=== PATIENT | male | born 1980 | race African-American/Black ===

== ENCOUNTER 2020-01-14 13:03 | Emergency (ER) | payer BC, SELFPAY ==
--- NOTE | ~2020-01-14 | XR_ITS ---
EXAMINATION: XR chest 1V portable 01/14/2020 13:39 INDICATION: Left chest pain PROCEDURE: AP portable chest COMPARISON: No prior studies for comparison. FINDINGS: The lungs are clear. The cardiomediastinal silhouette is within normal limits. There are no pleural effusions. There is no pneumothorax suspected. IMPRESSION: 1: NO ACUTE CARDIOPULMONARY DISEASE. Reviewed, dictated and finalized at location A.
[2020-01-14 13:07] VITALS: BP 137/78; PULSE 81; RESP 18; TEMP 36.4; O2SAT 100
[2020-01-14 13:10] VITALS: PULSE 81
--- NOTE | 2020-01-14 13:10 | ECG_ITS ---
Measurements Intervals [place] Rate: 76 P: 43 AL: 187 QRS: 27 QRSD: 93 T: -11 QT: 361 QTc: 407 Interpretive Statements SINUS RHYTHM NONSPECIFIC ST & T-WAVE ABNORMALITY- INFERIOR LEADS BASELINE ARTIFACT- II, III, AVF BORDERLINE ECG Electronically Signed On 01-14-2020 13:25:57 CDT by Brendan Baird D.O.
[2020-01-14] MEDS: ASPIRIN 81 MG CHEWABLE TABLET 324 MG PO (13:14)
[2020-01-14 13:25] LABS: Basophils Absolute Auto 0.1 K/mm3 (0.0-0.1); Basophils Percent Auto 0.6 % (0.2-1.2); Eosinophils Absolute Auto 0.1 K/mm3 (0-0.3); Eosinophils Percent Auto 1.6 % (0-4.4); Hematocrit 45.8 % (42.0-52.0); Hemoglobin 14.7 g/dL (14.0-18.0); Immature Granulocyte Absolute 0.03 K/mm3 (0.00-0.031); Immature Granulocyte Percent A 0.3 % (0-0.5); Lymphocytes Percent Auto 25.8 % (18.3-44.2); Mean Corpuscular HGB Conc 32.1 g/dl (32-36); Mean Corpuscular Hemoglobin 28.3 pg (26-34); Mean Corpuscular Volume 88.1 fl (80-100); Mean Platelet Volume 9.6 fl (7.4-10.4); Monocytes Absolute Auto 0.8 K/mm3 (0.1-0.6); Monocytes Percent Auto 8.4 % (2.6-8.5); Neutrophils Absolute Auto 5.6 K/mm3 (1.3-6.7); Neutrophils Percent Auto 63.3 % (45.5-73.1); Platelet Count Result 322 k/mm3 (150-375); Red Cell Distribution Width 11.5 % (11.5-14.5); White Blood Count 8.9 K/mm3 (4.5-10.0)
[2020-01-14 13:34] LABS: Prothrombin Time 12.7 Seconds (11.1-14.7)
[2020-01-14 13:37] VITALS: O2SAT 99
[2020-01-14 13:38] LABS: D Dimer 0.27 ug/mL (<0.48)
[2020-01-14 13:46] LABS: Troponin I < 0.012 ng/mL (0.000-0.034)
[2020-01-14 13:47] LABS: Alanine Aminotransferase 28 U/L (4-50); Albumin Level 4.6 g/dL (3.5-5.1); Alkaline Phosphatase 92 U/L (38-126); Aspartate Amino Transferase 23 U/L (17-59); Bilirubin,Total 1.3 mg/dL (0.2-1.3); Blood Urea Nitrogen 11 mg/dL (9-20); Calcium 9.6 mg/dL (8.4-10.2); Carbon Dioxide 26 mmol/L (22-30); Chloride 104 mmol/L (98-107); Estimated CRCL calculation 119 ml/min; Estimated Glomerular Filt Rate > 60; Glucose 97 mg/dL (75-110); Lipase 56 U/L (23-300); Potassium 3.9 mmol/L (3.4-5.0); Sodium 137 mmol/L (137-145)
--- NOTE | 2020-01-14 13:54 | ED.GENADULT ---
HPI - General Adult General Chief complaint: Chest Pain Stated complaint: chest pain Time Seen by Provider: 01/14/20 13:04 Source: patient Mode of arrival: ambulatory Limitations: no limitations History of Present Illness HPI narrative: Patient is a 39-year-old male who presents to emergency department for evaluation of left-sided intermittent chest pain described as a cramping sensation that lasts seconds and occurs throughout the day for the last 3 days. Patient does not take anything other than a few aspirin for his discomfort. Patient denies radiation of pain URI symptoms fever chills dyspnea or other complaints. Patient presents per private vehicle in no distress. Patient does not currently have a primary care doctor. Patient notes that he may have had fluid around his heart in the past but never has continued to follow-up and that the symptoms resolved. Related Data Home Medications Medication Instructions Recorded Confirmed No Home Medications 01/14/20 01/14/20 Allergies Allergy/AdvReac Type Severity Reaction Status Date / Time No Known Allergies Allergy Verified 01/14/20 13:13 Review of Systems Review of Systems: All systems reviewed & are unremarkable except as noted in HPI and below PMFSH Social History Social History (Updated 01/14/20 @ 13:55 by Casey Barrett PA-C) Smoking status: Former smoker Gender identity (if verbalized by the patient): Male Exam Narrative: Exam Narrative: GENERAL: Well-appearing, well-nourished, and in no acute distress. HEAD: Normocephalic, atraumatic. EYES: PERRLA and EOMI. ENT: Nares clear, no rhinorrhea or epistaxis. Mucous membranes moist. CHEST: Clear to auscultation. No respiratory distress. No wheezes rales or rhonchi HEART: Regular rate and rhythm. No murmur heard. Normal peripheral pulses. ABDOMEN: Soft, nontender, nondistended EXTREMITIES: Normal range of motion. No edema. SKIN: Warm, dry, no rash. NEURO: No focal deficits. Alert and oriented x3. Cranial nerves II through XII grossly intact PSYCH: Normal mood and affect. Course Course Emergency Course: Patient in the room at this time in no distress aware of case findings treatment plan and diagnosis agreeing to follow-up as directed with provided cardiology consult provided with reasons to return felt appropriate for outpatient reevaluation Consultations Consultation #1: Discussed case with cardiology who will follow patient in clinic Date: 01/14/20 Time: 17:13 Vital Signs Vital signs: Vital Signs Temperature 97.6 F 01/14/20 13:07 Pulse Rate 81 01/14/20 13:07 Respiratory Rate 18 01/14/20 13:07 Blood Pressure 137/78 01/14/20 13:07 Pulse Oximetry 100 01/14/20 13:07 Temperature 97.6 F 01/14/20 17:05 Pulse Rate 80 01/14/20 17:05 Respiratory Rate 22 H 01/14/20 17:05 Blood Pressure 113/72 01/14/20 17:05 Pulse Oximetry 100 01/14/20 17:05 Medical Decision Making MDM Narrative Medical decision making narrative: Patients EKGs and labs are without significant high risk changes. Cardiac risk factors were reviewed. Patient is felt likely to be low risk for ACS and reasonable for further risk stratification testing as an outpatient. Pain was not sudden or maximal in onset without tearing or ripping. quality. No other signs or symptoms to suggest aortic dissection. A low-risk Wells criteria is noted. PE is felt to be unlikely. No pneumonia or URI symptoms were seen on evaluation today. Patient is felt to b reasonable for continued evaluation as an outpatient. Vital Signs Vital Signs: Vital Signs Temperature 97.6 F 01/14/20 13:07 Pulse Rate 81 01/14/20 13:07 Respiratory Rate 18 01/14/20 13:07 Blood Pressure 137/78 01/14/20 13:07 Pulse Oximetry 100 01/14/20 13:07 Temperature 97.6 F 01/14/20 17:05 Pulse Rate 80 01/14/20 17:05 Respiratory Rate 22 H 01/14/20 17:05 Blood Pressure 113/72 01/14/20 17:05 Pulse Oximetry 100 01/14/20 17:05
[2020-01-14 13:55] LABS: NT Pro B Type Natriuretic Pept 28 PG/ML (5-100)
[2020-01-14 14:30] VITALS: BP 123/71; PULSE 66; RESP 14; TEMP 36.4; O2SAT 99
[2020-01-14 14:36] LABS: Amphetamine Screen Urine Negative (Negative); Barbiturate Screen Urine Negative (Negative); Benzodiazepines Screen Urine Negative (Negative); Cannabinoid Screen Urine Negative (Negative); Cocaine Screen Urine Negative (Negative); Methadone Screen Urine Negative (Negative); Opiate Screen Urine Negative (Negative); Phencyclidine Screen Urine Negative (Negative)
[2020-01-14 17:00] LABS: Troponin I < 0.012 ng/mL (0.000-0.034)
[2020-01-14 17:05] VITALS: BP 113/72; PULSE 80; RESP 22; TEMP 36.4; O2SAT 100
== END 2020-01-14 17:26 | disposition home or self-care (01) ==
PROVIDERS: Emergency Medicine Emergency Medical Services; Emergency Provider Emergency Medicine
DX: R07.9 Chest pain, unspecified (principal); Z87.891 Personal history of nicotine dependence; R94.31 Abnormal electrocardiogram [ECG] [EKG]
CPT/HCPCS: 36415; 71045; 80053; 80307; 83690; 83880; 84484; 85025; 85380; 85610; 85730; 93005; 99284; A9270

== ENCOUNTER 2021-02-01 00:42 | Emergency (ER) | payer BC, SELFPAY ==
[2021-02-01] VITALS (13 sets, daily range): BP systolic 133–163; BP diastolic 83–107; PULSE 84–100; RESP 17–24; TEMP 36.6; O2SAT 98–100
--- NOTE | ~2021-02-01 | XR_ITS ---
EXAMINATION: XR chest 2V DATE: 02/01/2021 01:09 INDICATION: Tachycardia TECHNIQUE: PA and lateral views of the chest are obtained. COMPARISON: 01/14/2020 FINDINGS: The lungs are free of acute opacities. There is no pleural effusion or pneumothorax. The ca rdiomediastinal silhouette is normal. The visualized bones and soft tissues are unremarkable. Calcifi ed loose bodies are noted in the left shoulder. IMPRESSION: 1. No acute cardiopulmonary abnormality. Reviewed, dictated and finalized at location A.
--- NOTE | 2021-02-01 00:47 | ECG_ITS ---
Measurements Intervals [place] Rate: 88 P: 54 NV: 187 QRS: 9 QRSD: 73 T: -33 QT: 339 QTc: 412 Interpretive Statements SINUS RHYTHM BORDERLINE ST-T WAVE ABNORMALITY- INF/LAT LEADS BASELINE ARTIFACT- II, III, AVR, AVF, V1, V3-V6 BORDERLINE ECG Electronically Signed On 02-01-2021 6:06:23 CDT by Brendan Baird D.O.
[2021-02-01 00:59] LABS: Basophils Absolute Auto 0.1 K/mm3 (0.0-0.1); Basophils Percent Auto 0.7 % (0.2-1.2); Eosinophils Absolute Auto 0.3 K/mm3 (0-0.3); Eosinophils Percent Auto 2.8 % (0-4.4); Hematocrit 46.4 % (42.0-52.0); Hemoglobin 14.7 g/dL (14.0-18.0); Immature Granulocyte Absolute 0.03 K/mm3 (0.00-0.031); Immature Granulocyte Percent A 0.3 % (0-0.5); Lymphocytes Absolute Auto 3.06 K/mm3 (0.9-3.2); Lymphocytes Percent Auto 28.8 % (18.3-44.2); Mean Corpuscular HGB Conc 31.7 g/dl (32-36); Mean Corpuscular Hemoglobin 28.3 pg (26-34); Mean Corpuscular Volume 89.2 fl (80-100); Mean Platelet Volume 9.3 fl (7.4-10.4); Monocytes Percent Auto 9.4 % (2.6-8.5); Neutrophils Absolute Auto 6.2 K/mm3 (1.3-6.7); Platelet Count Result 334 k/mm3 (150-375); Red Cell Distribution Width 11.7 % (11.5-14.5); White Blood Count 10.6 K/mm3 (4.5-10.0)
[2021-02-01 01:09] LABS: INR 0.9; Partial Thromboplastin Time 29.6 SECONDS (22.3-36.8); Prothrombin Time 12.7 Seconds (11.1-14.7)
--- NOTE | 2021-02-01 01:13 | ED.ARRPALP ---
HPI - Arrhythmia/Palpitations General Chief Complaint: Arrhythmia/Palpitations Stated Complaint: rapid heartbeat for last 30 minutes Time Seen by Provider: 02/01/21 00:50 History of Present Illness HPI narrative: Heart racing for the past 30 minutes. Fells like it is beating harder than usual. No chest pain. Was light headed with standing. Related Data Home Medications Medication Instructions Recorded Confirmed No Home Medications 01/14/20 01/14/20 Allergies Allergy/AdvReac Type Severity Reaction Status Date / Time No Known Allergies Allergy Verified 02/01/21 00:57 Review of Systems Review of Systems: All systems reviewed & are unremarkable except as noted in HPI and below Constitutional: Constitutional: Denies fever(s) and Denies weakness Eyes: Eyes: Reports no additional eye complaints Cardiovascular: Cardiovascular: Denies chest pain Respiratory: Respiratory: Denies dyspnea Gastrointestinal: Gastrointestinal: Denies nausea Neurologic: Denies confusion and Denies weakness [facility] Social History Social History Smoking status: Former smoker Gender identity (if verbalized by the patient): Male Exam Const: General: healthy appearing, no acute distress and alert Orientation/consciousness: patient oriented x3 HENMT: Head: normal to inspection Neck: Neck: normal visual inspection and no lymphadenopathy Chest: Chest palpation & inspection: no tenderness Resp: Effort & Inspection: normal respiratory effort Auscultation: clear to auscultation bilaterally, no rales, no rhonchi and no wheezes Cardio: Jugular venous distension: no JVD Rate: regular rate Rhythm: regular rhythm Heart sounds: no murmurs GI: Inspection: non-distended GI Palp: Yes Soft to palpation and No Tenderness to palpation present (GI) Skin: General skin exam: normal color Neuro: General: patient oriented x3 and moves all extremities Speech: normal speech Extrem: General: no edema Psych: Appearance: well kempt Affect: normal affect Course Vital Signs Vital signs: Vital Signs Temperature 36.6 C 02/01/21 00:46 Pulse Rate 97 02/01/21 00:46 Respiratory Rate 19 02/01/21 00:46 Blood Pressure 163/90 H 02/01/21 00:46 Pulse Oximetry 98 02/01/21 00:46 Temperature 36.6 C 02/01/21 00:46 Pulse Rate 84 02/01/21 02:38 Respiratory Rate 19 02/01/21 02:38 Blood Pressure 149/83 H 02/01/21 02:38 Pulse Oximetry 100 02/01/21 02:38 MDM - Arrhythmia/Palpitations MDM Narrative Medical decision making narrative: Normal rate and rhthym on telemetry and EKG. Sounds like he is likely dehydrated. No other worrisome symptoms. Differential Diagnosis Differential diagnosis: Likely palpitations, anxiety, sinus tachycardia and other Medical Records Attestation: I reviewed the patient's medical records. Lab Data Attestation: I reviewed the patient's lab results. Result diagrams: 02/01/21 00:53 02/01/21 00:53 Labs: Lab Results 02/01/21 02/01/21 02/01/21 Range/Units 00:53 00:53 00:53 WBC 10.6 H (4.5-10.0) K/mm3 RBC 5.20 (4.6-6.20) M/mm3 Hgb 14.7 (14.0-18.0) g/dL Hct 46.4 (42.0-52.0) % MCV 89.2 (80-100) fl MCH 28.3 (26-34) pg MCHC 31.7 L (32-36) g/dl RDW 11.7 (11.5-14.5) % Plt Count 334 (150-375) k/mm3 MPV 9.3 (7.4-10.4) fl Immature Gran % (Auto) 0.3 (0-0.5) % Neut % (Auto) 58.0 (45.5-73.1) % Lymph % (Auto) 28.8 (18.3-44.2) % Lynn % (Auto) 9.4 H (2.6-8.5) % Eos % (Auto) 2.8 (0-4.4) % Baso % (Auto) 0.7 (0.2-1.2) % Lymph # (Auto) 3.06 (0.9-3.2) K/mm3 Lynn # (Auto) 1.0 H (0.1-0.6) K/mm3 Eos # (Auto) 0.3 (0-0.3) K/mm3 Baso # (Auto) 0.1 (0.0-0.1) K/mm3 Abs Immat Gran (auto) 0.03 (0.00-0.031) K/mm3 Absolute Neuts (auto) 6.2 (1.3-6.7) K/mm3 Absolute Nucleated RBC 0.0 (0.0-0.012) K/mm3 Nucleated RBC % 0.0
[2021-02-01 01:28] LABS: Anion Gap 5 mmol/L (8-16); Blood Urea Nitrogen 12 mg/dL (9-20); Calcium 9.5 mg/dL (8.4-10.2); Carbon Dioxide 24 mmol/L (22-30); Chloride 109 mmol/L (98-107); Estimated CRCL calculation 122 ml/min; Estimated Glomerular Filt Rate > 60; Glucose 106 mg/dL (75-110); Potassium 3.9 mmol/L (3.4-5.0); Sodium 138 mmol/L (137-145)
[2021-02-01] MEDS: SODIUM CHLORIDE 0.9% IV 1,000 ML 999 ML IV CONT (01:36)
[2021-02-01 01:40] LABS: Troponin I < 0.012 ng/mL (0.000-0.034)
== END 2021-02-01 02:37 | disposition home or self-care (01) ==
PROVIDERS: Emergency Provider Emergency Medicine; PCP Emergency Medicine
DX: R00.2 Palpitations (principal); Z87.891 Personal history of nicotine dependence; R94.31 Abnormal electrocardiogram [ECG] [EKG]
CPT/HCPCS: 36415; 71046; 80048; 84484; 85025; 85610; 85730; 93005; 96360; 99284; J7030

== ENCOUNTER 2021-06-09 12:12 | Emergency (ER) | payer BC, SELFPAY ==
--- NOTE | ~2021-06-09 | XR_ITS ---
EXAMINATION: XR chest 2V EXAM DATE: 06/09/2021 12:39 INDICATION: Anterior left-sided chest pain, acute onset. History high blood pressure. TECHNIQUE: Frontal and lateral projections of the chest obtained and reviewed. Comparison is made to prior examination from 02/01/2021. FINDINGS: The lungs are clear. There are no pleural effusions. The cardiomediastinal silhouette is within normal limits. There is no pneumothorax suspected. The bones and soft tissues are unremarkab le. IMPRESSION: Unremarkable chest x-ray exam. Reviewed, dictated and finalized at location A.
--- NOTE | ~2021-06-09 | CT_ITS ---
EXAMINATION: CT brain wo con DATE: 06/09/2021 15:05 INDICATION: Headache for 2 days TECHNIQUE: Computed tomography (CT) of the head was performed without intravenous contrast. The mA wa s adjusted according to patient size. Iterative reconstruction technique was employed. Exam dose: 60 5.33 mGy-cm total exam DLP. COMPARISON: None FINDINGS: No intracranial mass lesion or hemorrhage or cerebrovascular accident is detected. No midli ne shift or mass effect. Normal ventricular size. Normal locke-white matter differentiation. No subdur al or epidural hematoma is detected. The orbital contents are unremarkable. No fracture or bone destruction of the cranial vault. There is minimal fluid or soft tissue thickenin g in the posterior right sphenoid sinus. The mastoid air cells are unremarkable. IMPRESSION: No significant intracranial abnormality Minimal fluid or soft tissue thickening in the posterior right sphenoid sinus Reviewed, dictated and finalized at Location A. Reviewed, dictated and finalized at location B.
[2021-06-09 12:21] VITALS: BP 134/91; PULSE 83; RESP 18; TEMP 36.5; O2SAT 100
--- NOTE | 2021-06-09 12:28 | ECG_ITS ---
Measurements Intervals [place] Rate: 79 P: 49 MS: 193 QRS: 18 QRSD: 79 T: -10 QT: 348 QTc: 400 Interpretive Statements SINUS RHYTHM NONSPECIFIC T-WAVE ABNORMALITY- INFERIOR LEADS BORDERLINE ECG Electronically Signed On 06-09-2021 13:43:21 CDT by Brendan Baird D.O.
[2021-06-09 12:30] VITALS: BP 126/82; PULSE 73; RESP 18; O2SAT 100
[2021-06-09 12:31] VITALS: PULSE 79
--- NOTE | 2021-06-09 12:38 | ED.RECABL ---
HPI - Recheck/Abnormal Lab/Rx General Chief Complaint: Recheck/Abnormal Lab/Rx Stated Complaint: high blood pressure/ headache Time Seen by Provider: 06/09/21 12:25 Source: RN notes reviewed History of Present Illness HPI narrative: Patient presents emergency department from home for multiple complaints. The patient states that for the past 2 days has had a generalized headache that is currently resolved and notes no headache at this time. Patient also states that this morning he had 2 episodes of left-sided chest pain there is described as sharp and stabbing each lasted approximately 1 seconds and resolved he has had no pain since that time denies any fevers or chills shortness of breath abdominal pain nausea vomiting or any other symptoms Related Data Home Medications Medication Instructions Recorded Confirmed simvastatin 20 mg DAILY 06/09/21 Allergies Allergy/AdvReac Type Severity Reaction Status Date / Time No Known Allergies Allergy Verified 06/09/21 12:30 Review of Systems Review of Systems: Gen.: Denies fevers or chills ENT: Denies congestion Respiratory: Denies shortness of breath or cough CV: Denies chest pain or palpitations GI: Denies abdominal pain nausea, emesis or diarrhea denies burning, urgency, frequency or hematuria Musculo reports headache Skin: Denies rash Except as documented, all other systems reviewed and negative [facility] Past Medical History Medical History (Updated 06/09/21 @ 16:17 by Carlos Miller DO) Hypercholesterolemia Social History Social History Smoking status: Former smoker Gender identity (if verbalized by the patient): Male Exam Narrative: APPEARANCE: No acute distress, nontoxic, resting in bed EYES: EOMI HEENT: Normocephalic, atraumatic, OMM TMs clear bilaterally Neck supple full range of motion without pain no meningismus RESPIRATORY: No respiratory distress Clear to auscultation bilaterally with no rhonchi wheezing or rales. CARDIOVASCULAR: Regular rate and rhythm without murmurs rubs or gallops. ABDOMINAL: Soft, nontender, nondistended, no rebound or guarding MUSCULOSKELETAl: Moves all extremities. No clubbing, cyanosis or edema. NEURO: Awake and alert x 4. Following commands, speech normal, no focal deficits SKIN:: Warm, dry. No rashes lesions or abrasions PSYCHIATRIC: Normal affect/mood, Course Course Emergency Course: Patient meets PERC rule criteria and no further testing needs to be performed for pulmonary embolism. Patient did have mild return of his headache and was given Toradol with resolution of headache. He states he has had some mild issue with allergies recently Discussed with patient results of workup and diagnosis. Discussed need for follow-up with primary care, proper use of medication, and reasons to return to the emergency department. Patient understands and agrees to current treatment plan Vital Signs Vital signs: Vital Signs Temperature 97.7 F 06/09/21 12:21 Pulse Rate 83 06/09/21 12:21 Respiratory Rate 18 06/09/21 12:21 Blood Pressure 134/91 H 06/09/21 12:21 Pulse Oximetry 100 06/09/21 12:21 Temperature 97.7 F 06/09/21 12:21 Pulse Rate 72 06/09/21 14:00 Respiratory Rate 18 06/09/21 14:00 Blood Pressure 118/68 06/09/21 14:00 Pulse Oximetry 100 06/09/21 14:00 MDM - Recheck/Abnormal Lab/Rx MDM Narrative Medical decision making narrative: Patient's EKGs and labs are without significant high risk changes. Cardiac risk factors reviewed. Patient is felt likely low risk for ACS and reasonable for further risk stratification testing as an outpatient. Pain was not sudden or maximal in onset without tearing or ripping quality. No other signs of symptoms suggest aortic dissection. A low-risk Wells criteria is noted, PE is felt to be unlikely. No pneumonia seen on evaluation today. Patient is felt to be a reasonable candidate for continued evaluatio
[2021-06-09 12:41] LABS: Basophils Absolute Auto 0.1 K/mm3 (0.0-0.1); Basophils Percent Auto 0.7 % (0.2-1.2); Eosinophils Absolute Auto 0.2 K/mm3 (0-0.3); Eosinophils Percent Auto 3.1 % (0-4.4); Hematocrit 45.4 % (42.0-52.0); Hemoglobin 14.5 g/dL (14.0-18.0); Immature Granulocyte Absolute 0.02 K/mm3 (0.00-0.031); Immature Granulocyte Percent A 0.3 % (0-0.5); Lymphocytes Absolute Auto 1.75 K/mm3 (0.9-3.2); Lymphocytes Percent Auto 24.5 % (18.3-44.2); Mean Corpuscular HGB Conc 31.9 g/dl (32-36); Mean Corpuscular Hemoglobin 28.8 pg (26-34); Mean Corpuscular Volume 90.3 fl (80-100); Mean Platelet Volume 9.5 fl (7.4-10.4); Monocytes Absolute Auto 0.7 K/mm3 (0.1-0.6); Monocytes Percent Auto 10.2 % (2.6-8.5); Neutrophils Absolute Auto 4.4 K/mm3 (1.3-6.7); Neutrophils Percent Auto 61.2 % (45.5-73.1); Platelet Count Result 285 k/mm3 (150-375); Red Blood Count 5.03 M/mm3 (4.6-6.20); Red Cell Distribution Width 12.3 % (11.5-14.5); White Blood Count 7.2 K/mm3 (4.5-10.0)
[2021-06-09 12:50] LABS: Anion Gap 10 mmol/L (8-16); Blood Urea Nitrogen 11 mg/dL (9-20); Calcium 9.4 mg/dL (8.4-10.2); Carbon Dioxide 23 mmol/L (22-30); Chloride 106 mmol/L (98-107); Estimated CRCL calculation 145 ml/min; Estimated Glomerular Filt Rate > 60; Glucose 101 mg/dL (65-110); Sodium 139 mmol/L (137-145)
[2021-06-09 13:02] LABS: Troponin I < 0.012 ng/mL (0.000-0.034)
[2021-06-09 13:13] LABS: INR 0.9; Prothrombin Time 11.9 Seconds (11.1-14.7)
[2021-06-09 13:14] LABS: Partial Thromboplastin Time 30.3 SECONDS (22.3-36.8)
[2021-06-09 14:00] VITALS: BP 118/68; PULSE 72; RESP 18; O2SAT 100
[2021-06-09] MEDS: KETOROLAC 30 MG/ML VIAL (*BKC) IV PUSH (15:09)
[2021-06-09 16:29] LABS: Troponin I < 0.012 ng/mL (0.000-0.034)
== END 2021-06-09 17:17 | disposition home or self-care (01) ==
PROVIDERS: Emergency Provider Emergency Medicine; PCP Emergency Medicine
DX: R51.9 Headache, unspecified (principal); R07.89 Other chest pain; E78.00 Pure hypercholesterolemia, unspecified; R94.31 Abnormal electrocardiogram [ECG] [EKG]
CPT/HCPCS: 36415; 70450; 71046; 80048; 84484; 85025; 85610; 85730; 93005; 96374; 99284; J1885